=== PATIENT | male | born 1955 | race Caucasian/White ===

== ENCOUNTER 2017-01-25 20:27 | Emergency (ER) | payer OTHER ==
[~2017-01-25] VITALS: Ht 180.3 cm; Wt 131.2 kg
[2017-01-25] MEDS ORDERED: KEFLEX500 MG PO (21:56)
[2017-01-25 22:06] VITALS: BP 177/94
== END 2017-01-25 22:12 | disposition home or self-care (01) ==
LOC: EME 20:27
DX: S61.412A Laceration without foreign body of left hand, initial encounter (principal); W26.8XXA Contact with other sharp object(s), not elsewhere classified, initial encounter; W19.XXXA Unspecified fall, initial encounter; Z23 Encounter for immunization
CPT/HCPCS: 99281; 99285